=== PATIENT | female | born 1995 | race Caucasian/White ===

== ENCOUNTER 2017-04-19 20:03 | Emergency (ER) | payer BC ==
[2017-04-19 20:03] VITALS: BMI 25.8
[2017-04-19] MEDS ORDERED: Sodium Chloride 0.9% 1,000 ML IV STA (20:24)
--- NOTE | 2017-04-19 20:24 | ED PDOC ---
Arrival/HPI - General Chief Complaint: Abdominal Pain Time Seen by Provider: 04/19/17 20:15 Historian: Patient - History of Present Illness Narrative History of Present Illness (Text): 04/19/17 20:24 This 21 yo female with pmh ovarian cyst, presents to this ED c/o right lower pelvic pain x 2 hours. Patient stated pain started suddenly. Patient denies nausea, vomiting, diarrhea, sob, cp, or urinary symptoms. Time/Duration: Other (2 hours) Quality: Aching Context: Home Past Medical History - Provider Review Nursing Documentation Reviewed: Yes - Infectious Disease Hx of Infectious Diseases: None - Tetanus Immunization Tetanus Immunization: Unknown - Past Medical History Past Medical History: No Previous - Gastrointestinal Hx Gastrointestinal Ulcer: Yes - Psychiatric Hx Psychophysiologic Disorder: No Hx Substance Use: No - Past Surgical History Past Surgical History: No Previous - Anesthesia Hx Anesthesia: No - Suicidal Assessment Feels Threatened In Home Enviroment: No Family/Social History - Physician Review Nursing Documentation Reviewed: Yes Family/Social History: Other (non contributory) Smoking Status: Never Smoked Hx Alcohol Use: No Hx Substance Use: No Hx Substance Use Treatment: No Allergies/Home Meds Allergies/Adverse Reactions: Allergies pineapple Allergy (Verified 12/06/15 19:42) ANAPHYLAXIS Home Medications: Home Meds Medication Instructions Recorded Confirmed Cephalexin [Keflex] 500 mg PO BID 04/09/16 04/09/16 Phenazopyridine [Pyridium] 200 mg PO TID 04/09/16 04/09/16 Review of Systems - Review of Systems Constitutional: Normal. absent: Fatigue, Weight Change, Fevers Eyes: Normal ENT: Normal Respiratory: Normal. absent: SOB, Cough Cardiovascular: Normal. absent: Chest Pain, Palpitations Gastrointestinal: Abdominal Pain (RLQ pain). absent: Nausea, Vomiting Genitourinary Female: Normal. absent: Dysuria, Frequency, Hematuria, Vaginal Bleeding, Vaginal Discharge Musculoskeletal: Normal. absent: Back Pain Skin: Normal. absent: Rash Neurological: Normal. absent: Headache, Dizziness, Focal Weakness Endocrine: Normal Hemo/Lymphatic: Normal Psychiatric: Normal Physical Exam Vital Signs Temp Pulse Resp BP Pulse Ox 04/20/17 00:07 98.2 F 57 L 18 120/72 100 Temperature: Afebrile Blood Pressure: Normal Pulse: Regular Respiratory Rate: Normal Appearance: Positive for: Well-Appearing, Non-Toxic, Comfortable Pain Distress: None Mental Status: Positive for: Alert and Oriented X 3 - Systems Exam Head: Present: Atraumatic, Normocephalic Pupils: Present: PERRL Extroacular Muscles: Present: EOMI Conjunctiva: Present: Normal Mouth: Present: Moist Mucous Membranes Neck: Present: Normal Range of Motion Respiratory/Chest: Present: Clear to Auscultation, Good Air Exchange. No: Respiratory Distress, Accessory Muscle Use Cardiovascular: Present: Regular Rate and Rhythm, Normal S1, S2. No: Murmurs Abdomen: Present: Tenderness (Mild RLQ abdominal tenderness on palpation), Normal Bowel Sounds. 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 No: Vaginal Bleeding, Vaginal Lesions, Adenexal Tenderness, Adenexal Mass, Odor Back: Present: Normal Inspection. No: CVA Tenderness Upper Extremity: Present: Normal Inspection. No: Cyanosis, Edema Lower Extremity: Present: Normal Inspection. No: Edema Neurological: Present: GCS=15, CN II-XII Intact, Speech Normal Skin: Present: Warm, Dry, Normal Color. No: Rashes Psychiatric: Present: Alert, Oriented x 3, Normal Insight, Normal Concentration Medical Decision Making ED Course and Treatment: 04/19/17 23:39 Re-evaluation. Patient feels better. Discussed results and plan with patient who expresses understanding. All questions answered and there is agreement with the plan to discharge home with instructions. Patient stable for discharge. Return if symptoms persist or worsen. Pending GC/Chlam Re-evaluation Time: 23:39 Reassessment Condition: Re-examined, Improved - Lab Interpretations Lab Results: 04/19/17 21:00 04/19/17 21:00 Lab Results 04/19/17 21:00: Urine Color Yellow, Urine Appearance Clear, Urine pH 6.5, Ur Specific [place] 1.025, Urine Protein Negative, Urine Glucose (UA) Negative, Urine Ketones Negative, Urine Blood Negative, Urine Nitrate Negative, Urine Bilirubin Negative, Urine Urobilinogen 0.2, Ur Leukocyte Esterase Negative, Urine HCG, Qual Negative 04/19/17 21:00: Sodium 139, Potassium 4.0, Chloride 102, Carbon Dioxide 28, Anion Gap 13, BUN 13, Creatinine 0.7, Est GFR ( Amer) > 60, Est GFR (Non- Af Amer) > 60, Random Glucose 111 H, Calcium 9.2, Total Bilirubin 0.2, AST 26, ALT 29, Alkaline Phosphatase 46, Total Protein 6.7, Albumin 4.2, Globulin 2.5, Albumin/Globulin Ratio 1.7, Lipase 115 04/19/17 21:00: WBC 8.8, RBC 4.27, Hgb 12.7, Hct 38.4, MCV 89.9, MCH 29.7, MCHC 33.1, RDW 13.0, Plt Count 294, MPV 9.7, Gran % 64.1, Lymph % (Auto) 29.3, Cameron % (Auto) 5.8, Eos % (Auto) 0.7 L, Baso % (Auto) 0.1, Gran # 5.62, Lymph # 2.6, Cameron # 0.5, Eos # 0.1, Baso # 0.01 I have reviewed the lab results: Yes Interpretation: No clinic. lab abnormalty - RAD Interpretation Narrative RAD Interpretations (Text): 04/19/17 23:33 [facility] Division of Radiology [address] [place] [address] Tel. no. Patient Name: ALMA CASTRO Pt. Address: [address] [place] [address] Rec #: [id number] [place] [address]: Jena Fields PA-C Pt Order Location: ED : 1995 Female Age: 21 Order #: [id number] Reason for exam: RLQ pain r/o appy CT Scan ABD PELVIS IV CONTRAST ONLY Exam Date: 04/19/17 This imaging exam was performed at [facility] EXAM: CT Abdomen and Pelvis With Intravenous Contrast CLINICAL HISTORY: 21 years old, female; Pain; Abdominal pain; Localized; Right lower quadrant (rlq); Additional info: Rlq pain R/O appy TECHNIQUE: Axial computed tomography images of the abdomen and pelvis with intravenous contrast. All CT scans at this facility use one or more dose reduction techniques, viz.: automated exposure control; ma/kV adjustment per patient size (including targeted exams where dose is matched to indication; i.e. head); or iterative reconstruction technique. Coronal and sagittal reformatted images were created and reviewed. CONTRAST: 94 mL of OMNI 350 administered intravenously. COMPARISON: US - TRANSVAGINAL 04/10/2016 12:59:25 AM FINDINGS: Lower thorax: 0.3 cm subpleural nodule vs focal scarring RIGHT lower lobe. ABDOMEN: Liver: Unremarkable. No mass. Gallbladder and bile ducts: No calcified stones. No ductal dilation. Pancreas: No ductal dilation. No mass. Spleen: No splenomegaly. Adrenals: No mass. Kidneys and ureters: No mass. No hydronephrosis. Stomach and bowel: No definite mural thickening. No obstruction. Appendix: Normal caliber. No definite inflammation. PELVIS: Bladder: Unremarkable. Reproductive: 1.6 x 0.7 x 1.3 cm peripherally enhancing hypodensity with crenulated margins within LEFT ovary. ABDOMEN and PELVIS: Intraperitoneal space: Trace free fluid within lower abdomen/pelvis. No free air. Bones/joints: No acute fracture. Soft tissues: Tiny umbilical hernia containing fat. Small midline ventral hernia containing fat. Vasculature: Unremarkable. No aneurysm. Lymph nodes: No pathologically enlarged lymph nodes. IMPRESSION: 1. No definite CT evidence of appendicitis. 2. Involuting or ruptured LEFT ovarian follicle/cyst. 3. Incidental/non-acute findings are described above. Dictated By: Erick Swan MD Dictated Date/Time: 04/19/172323 Signed By: Erick Swan MD Date Signed: [id number] Transcribed By: JOHN Transcribe Date/Time : 04/19/172323 ACYP02/CARTER Radiology Orders: 04/19/17 20:25 ABD & PELVIS IV CONTRAST ONLY [CT] Stat - Medication Orders Current Medication Orders: Discontinued Medications Azithromycin (Zithromax) 1,000 mg PO STAT STA PRN Reason: Protocol Stop: 04/19/17 23:35 Last Admin: 04/19/17 23:56 Dose: 1,000 mg Famotidine (Pepcid) 20 mg IVP STAT STA Stop: 04/19/17 20:25 Last Admin: 04/19/17 21:17 Dose: 20 mg IVP Administration Document 04/19/17 21:17 EQ (Rec: 04/19/17 21:17 EQ [id number]) Charges for Administration # of IVP Administrations 1 Sodium Chloride (Sodium Chloride 0.9%) 1,000 mls @ 1,000 mls/hr IV .Q1H STA Stop: 04/19/17 21:23 Last Admin: 04/19/17 21:17 Dose: 1,000 mls/hr eMAR Start Stop Document 04/19/17 21:17 EQ (Rec: 04/19/17 21:17 EQ [id number]) Intravenous Solution Start Date 04/19/17 Start Time 21:17 Ceftriaxone Sodium (Rocephin 1 Gram Ivpb) 1 gm in 100 mls @ 200 mls/hr IVPB STAT STA PRN Reason: Protocol Stop: 04/20/17 00:02 Last Admin: 04/19/17 23:56 Dose: 200 mls/hr eMAR Start Stop Document 04/19/17 23:56 TIMOTHY (Rec: 04/19/17 23:56 [email or web address] [id number]) Intravenous Solution Start Date 04/19/17 Start Time 23:56 End Date 04/20/17 End time 00:26 Total Infusion Time 30 Ketorolac Tromethamine (Toradol) 15 mg IVP STAT STA Stop: 04/19/17 20:25 Last Admin: 04/19/17 21:17 Dose: 15 mg MAR Pain Assessment Document 04/19/17 21:17 EQ (Rec: 04/19/17 21:17 EQ [id number]) Pain Reassessment Is this a pain reassessment? No Sleep Is patient sleeping during reassessment? No Presence of Pain Presence of Pain Yes IVP Administration Document 04/19/17 21:17 EQ (Rec: 04/19/17 21:17 EQ [id number]) Charges for Administration # of IVP Administrations 1 Ondansetron HCl (Zofran Inj) 4 mg IVP STAT STA Stop: 04/19/17 20:25 Last Admin: 04/19/17 21:17 Dose: 4 mg IVP Administration Document 04/19/17 21:17 EQ (Rec: 04/19/17 21:18 EQ [id number]) Charges for Administration # of IVP Administrations 1 Disposition/Present on Arrival - Present on Arrival Any Indicators Present on Arrival: No History of DVT/PE: No History of Uncontrolled Diabetes: No Urinary Catheter: No History of Decub. Ulcer: No History Surgical Site Infection Following: None - Disposition Have Diagnosis and Disposition been Completed?: Yes Diagnosis: Cervicitis, Ovarian cyst rupture Disposition: HOME/ ROUTINE Disposition Time: 23:40 Patient Plan: Discharge Condition: GOOD Discharge Instructions (ExitCare): Ovarian Cyst (ED) Additional Instructions: Call private [facility] doctor for follow up visit in 1-2 days. Take medication as instructed. Return to emergency if symptoms worsen. Prescriptions: Naproxen 500 mg PO BID PRN #14 tab PRN Reason: Pain, Severe (8-10) Referrals: Dr. TATTOFF Profile Req, [Non-Staff] - Follow up with primary Jadon Hampton MD [Staff Provider] - Follow up with primary Forms: [employer] (Austrian), WORK NOTE, SCHOOL NOTE
[2017-04-19 21:22] LABS: PH,URINE 6.5 (4.7-8.0); URINE BILIRUBIN NEGATIVE (NEGATIVE); URINE BLOOD NEGATIVE (NEGATIVE); URINE GLUCOSE (UA) NEGATIVE (NEGATIVE); URINE KETONE NEGATIVE (NEGATIVE); URINE LEUKOCYTE ESTERASE NEGATIVE Leu/uL (NEGATIVE); URINE PROTEIN NEGATIVE mg/dL (<30 mg/dL); URINE UROBILINOGEN 0.2 E.U./dL (<1 E.U./dL)
[2017-04-19 21:24] LABS: URINE APPEARANCE CLEAR (CLEAR); URINE COLOR YELLOW (YELLOW)
[2017-04-19 21:30] LABS: ALB/GLOB RATIO 1.7 (1.1-1.8); ALKALINE PHOSPHATASE 46 U/L (38-126); ALT/SGPT 29 U/L (7-56); AST/SGOT 26 U/L (14-36); BILIRUBIN,TOTAL 0.2 mg/dL (0.2-1.3); BLOOD UREA NITROGEN 13 mg/dL (7-21); CALCIUM 9.2 mg/dL (8.4-10.5); CARBON DIOXIDE 28 mmol/L (21-33); CHLORIDE 102 mmol/L (98-107); GFR AFRICAN-AMERICAN > 60; GLUCOSE,RANDOM 111 mg/dL (70-110); LIPASE 115 U/L (23-300); SODIUM 139 mmol/L (132-148); TOTAL PROTEIN 6.7 g/dL (5.8-8.3)
[2017-04-19 21:50] LABS: BASO # 0.01 K/mm3 (0.0-2.0); BASO % 0.1 % (0.0-3.0); EOS # 0.1 (0.0-0.7); EOS % 0.7 % (1.5-5.0); GRAN # 5.62 (1.4-6.5); GRAN % 64.1 % (50.0-68.0); HEMATOCRIT 38.4 % (36.0-48.0); LYMPH # 2.6 (1.2-3.4); LYMPH % 29.3 % (22.0-35.0); MEAN CELL VOLUME 89.9 fl (80.0-105.0); MEAN CORPUSCULAR HEMOGLOBIN 29.7 pg (25.0-35.0); MEAN CORPUSCULAR HGB CONC 33.1 g/dl (31.0-37.0); MEAN PLATELET VOLUME 9.7 fl (7.0-11.0); MONO # 0.5 (0.1-0.6); MONO % 5.8 % (1.0-6.0); WHITE BLOOD COUNT 8.8 10^3/ul (4.5-11.0)
[2017-04-19] MEDS ORDERED: Iohexol 350 MG/100 ML VIAL ONE (22:11)
--- NOTE | 2017-04-19 23:24 | CT ---
EXAM: CT Abdomen and Pelvis With Intravenous Contrast CLINICAL HISTORY: 21 years old, female; Pain; Abdominal pain; Localized; Right lower quadrant (rlq); Additional info: Rlq pain R/O appy TECHNIQUE: Axial computed tomography images of the abdomen and pelvis with intravenous contrast. All CT scans at this facility use one or more dose reduction techniques, viz.: automated exposure control; ma/kV adjustment per patient size (including targeted exams where dose is matched to indication; i.e. head); or iterative reconstruction technique. Coronal and sagittal reformatted images were created and reviewed. CONTRAST: 94 mL of OMNI 350 administered intravenously. COMPARISON: US - TRANSVAGINAL 04/10/2016 12:59:25 AM FINDINGS: Lower thorax: 0.3 cm subpleural nodule vs focal scarring RIGHT lower lobe. ABDOMEN: Liver: Unremarkable. No mass. Gallbladder and bile ducts: No calcified stones. No ductal dilation. Pancreas: No ductal dilation. No mass. Spleen: No splenomegaly. Adrenals: No mass. Kidneys and ureters: No mass. No hydronephrosis. Stomach and bowel: No definite mural thickening. No obstruction. Appendix: Normal caliber. No definite inflammation. PELVIS: Bladder: Unremarkable. Reproductive: 1.6 x 0.7 x 1.3 cm peripherally enhancing hypodensity with crenulated margins within LEFT ovary. ABDOMEN and PELVIS: Intraperitoneal space: Trace free fluid within lower abdomen/pelvis. No free air. Bones/joints: No acute fracture. Soft tissues: Tiny umbilical hernia containing fat. Small midline ventral hernia containing fat. Vasculature: Unremarkable. No aneurysm. Lymph nodes: No pathologically enlarged lymph nodes. IMPRESSION: 1. No definite CT evidence of appendicitis. 2. Involuting or ruptured LEFT ovarian follicle/cyst. 3. Incidental/non-acute findings are described above.
[2017-04-19] MEDS ORDERED: cefTRIAXone 1 gm 1 GM/100 ML BAG IVPB STA (23:33)
[2017-04-20 00:07] VITALS: BP 120/72; PULSE 57; RESP 18; TEMP 98.2; O2SAT 100
== END 2017-04-20 00:46 | disposition home or self-care (01) ==
LOC: ED 20:03
DX: N72 Inflammatory disease of cervix uteri (principal); N83.202 Unspecified ovarian cyst, left side
CPT/HCPCS: 74177; 80053; 81003; 83690; 84703; 85025; 96365; 96375; 99283; J0696; J1885; J2405; J7040; Q9967